=== PATIENT | female | born 1970 | race African-American/Black ===

== ENCOUNTER → 2019-11-12 | Outpatient (CLI) | payer MEDICARE ==
[~2019-11-12] MED LIST: ALLO100T PO; CLON1TAB PO; GLIP5TAB10 PO; INSU100C4 SQ; SODI650T PO
== END ==
LOC: LAB 15:19
PROVIDERS: ATTEND Internal Medicine Gastroenterology
DX: Z01.818 Encounter for other preprocedural examination (principal); Z11.59 Encounter for screening for other viral diseases; R12 Heartburn
CPT/HCPCS: 36415; U0003

== ENCOUNTER → 2019-11-17 | Day surgery (SDC) | payer MEDICARE, OTHER ==
[~2019-11-17] MED LIST changes: +IV NORMAL SALINE 1000ML BAG 1,000 ML IV ONE; +PROPOFOL 10 MG/ML (20ML) VIAL. IV ONE
[2019-11-17 09:34] VITALS: BP 169/120
--- NOTE | 2019-11-18 16:06 | PATHOLOGY ---
[facility] Accession Number: [id number] . 01 Material submitted: . esophagus - DISTAL ESOPHAGUS BIOPSY. Modifiers: distal . 01 Clinical history: . Dysphagia rule of Luis's . 02 Diagnosis: Esophageal biopsies, distal esophagus: - Reflux esophagitis. ([facility] 11/18/2019) [facility] 11/18/2019 0937 Local . 02 Comment: Sections of the distal esophageal biopsy reveal segments of focally tangentially oriented hyperplastic squamous esophageal mucosa. The findings are consistent with reflux esophagitis. There is no evidence of Luis's change, dysplasia or malignancy. ([facility] 11/18/2019) . 02 Electronically signed: . Tony Barrientos MD, Pathologist NPI- [id number] . 01 Gross description: . The specimen is received in formalin, labeled "Elisabeth Jacobson, distal esophagus BX" and consists of a few translucent fragments of pink-emmanuel tissue measuring 0.8 x 0.5 x 0.2 cm in aggregate which are entirely submitted in A1. (SD; 11/17/2019) [facility] 11/17/2019 1707 Local . 02 Pathologist provided ICD-10: K21.0 . 02 CPT . 525559 Specimen Comment: A courtesy copy of this report has been sent to [phone], [phone] Specimen Comment: [id number] Specimen Comment: Report sent to / DR ROLDAN Performed at: 01 [facility] [address], [place] [id number] MD Thomas Brown MD Phone: [phone] Performed at: 02 [facility] [address] [place], [place] [id number] MD Tony Barrientos MD Phone: [phone]
== END ==
LOC: ENDOS 06:51
PROVIDERS: ATTEND Internal Medicine Gastroenterology
DX: R13.10 Dysphagia, unspecified (principal); K21.0 Gastro-esophageal reflux disease with esophagitis; K22.2 Esophageal obstruction; I10 Essential (primary) hypertension; E11.9 Type 2 diabetes mellitus without complications; F41.9 Anxiety disorder, unspecified; F32.9 Major depressive disorder, single episode, unspecified; Z72.89 Other problems related to lifestyle; Z88.1 Allergy status to other antibiotic agents; Z91.040 Latex allergy status; Z98.890 Other specified postprocedural states; Z79.84 Long term (current) use of oral hypoglycemic drugs
CPT/HCPCS: 43239; 43450; 88305; J2704